=== PATIENT | male | born 1985 | race African-American/Black ===

== ENCOUNTER 2022-09-06 22:11 | Emergency (ER) | payer MEDICAID, OTHER ==
[~2022-09-06] VITALS: Ht 182.9 cm; Wt 100.0 kg
[2022-09-06 23:02] VITALS: BP 119/80; PULSE 109; RESP 16; TEMP 98.5; O2SAT 98
== END 2022-09-06 23:46 | disposition home or self-care (01) ==
LOC: ER 22:11
DX: T16.1XXA Foreign body in right ear, initial encounter (principal); F17.210 Nicotine dependence, cigarettes, uncomplicated; X58.XXXA Exposure to other specified factors, initial encounter; Y93.89 Activity, other specified; Y92.89 Other specified places as the place of occurrence of the external cause; Y99.8 Other external cause status
CPT/HCPCS: 69200; 99284

== ENCOUNTER 2022-11-11 20:01 | Emergency (ER) | payer MEDICAID ==
[~2022-11-11] VITALS: Ht 180.3 cm; Wt 99.0 kg
[2022-11-11 20:45] VITALS: O2SAT 99
[2022-11-11] MEDS ORDERED: AZIT250T12 MT (21:57)
[2022-11-11 22:00] VITALS: BP 139/80; PULSE 97; RESP 18; TEMP 99
== END 2022-11-11 22:03 | disposition home or self-care (01) ==
LOC: ER 20:01
DX: J32.9 Chronic sinusitis, unspecified (principal)
CPT/HCPCS: 99283